=== PATIENT | female | born 1955 | race Caucasian/White ===

== ENCOUNTER 2017-07-02 11:02 | Day surgery (SDC) | payer BC ==
[~2017-07-02] VITALS: Ht 180.3 cm; Wt 101.6 kg
[~2017-07-02 11:02] MED LIST: CHOLESTEROL; COZAAR100 MG PO; LIPITOR20 M1 PO; LISINOPRIL; LOPRESSOR50 M1 PO; MULTIVITAMI9 PO
[2017-07-02 13:23] VITALS: BP 157/99
== END 2017-07-02 13:30 | disposition home or self-care (01) | DRG 395 ==
LOC: ENDO 11:02 → ORM 13:45
PROVIDERS: ATTEND Internal Medicine Gastroenterology
PROC: 0DBN8ZX Excision of Sigmoid Colon, Via Natural or Artificial Opening Endoscopic, Diagnostic (ICD-10-PCS; principal; 2017-07-02)
PROC: 0DJD8ZZ Inspection of Lower Intestinal Tract, Via Natural or Artificial Opening Endoscopic (ICD-10-PCS; 2017-07-02)
DX: K64.8 Other hemorrhoids (principal); Z85.038 Personal history of other malignant neoplasm of large intestine; D12.5 Benign neoplasm of sigmoid colon; Z80.0 Family history of malignant neoplasm of digestive organs; Z93.3 Colostomy status; Z98.84 Bariatric surgery status

== ENCOUNTER 2017-07-27 15:20 | Inpatient (IN) | payer BC ==
[~2017-07-27] VITALS: Ht 180.3 cm; Wt 99.8 kg
[~2017-07-27 15:20] MED LIST changes: +CENTRU3 PO; +METOPROLOL SUCC50 MG PO; +PROTONIX40 M2 PO
--- NOTE | 2017-08-04 17:55 | NUR ---
PT REMAINS IN OR .
[2017-08-04 18:35] VITALS: BP 125/75
--- NOTE | 2017-08-04 18:35 | NUR ---
pt arrived from or in bed, ngt inplace, weston draining yellow urine. scd's in place. dressing on abd is cdi. emely draining. iv site is free from redness or edema. pt inquiring about ice chips due to being dry mouthed. informed we can give the swabs. continue to osberve and monitor.
--- NOTE | 2017-08-04 19:30 | NUR ---
according to the contract consultant pump it is readinmg/10mg/10mg lockout. needing to verify with . call made by rn oncoming shift. spoke with piero hernandez from or and was informed that leonor hernandez from or recieved orders from .
--- NOTE | 2017-08-04 19:30 | NUR ---
PATIENT RESTING IN BED AT THIS TIME-DROWSY BUT AROUSABLE. PATIENT IS ORIENTEDX3. PATIENT WITH NGTUBE TO LEFT NARE TO LIWS DRAINING SCANT AMT OF CLEAR DRAINAGE. PATIENT WITH LAZARO CATH PATENT AND DRAINING CLEAR YELLOW URINE. MUSA DRAIN TO LEFT ABD INTACT AND DRAINING MODERATE AMT OF SEROSANGUINOUS FLUID. ABD DRESSING CLEAN DRY AND INTACT. PATIENT WITH IV SITE TO LEFT HAND WITH IVF PATENT AND INFUSING AT 150CC/HR. SITE APPEARS HEALTHY AT THIS TIME. MORPHINE SOLAR SYSTEM DESIGNER IN PLACE AND WILL VERIFY ORDER-DR. SOFIA HAS ALREADY BEEN CALLED AND AWAITING CALL BACK. O2 VIA NASAL CANNULA IN PLACE AT 2LPM-ENCOURAGED USE OF IS Q1H WHILE AWAKE AND CDB EXERCISE. SAMINA SCD IN PLACE AND WORKING. ABD IS SOFT WITH HYPOACTIVE BS. NO PEDAL EDEMA NOTED AND PULSE PALPABLE. PATIENT ORIENTED TO SURROUNDINGS AND NURSE CALL LIGHT SYSTEM. CALL LIGHT IN REACH. WILL CONT TO MONITOR.
--- NOTE | 2017-08-04 19:50 | NUR ---
RECIEVED CALL BACK FROM DR. SOFIA AND FORGING PRESS LEVER TENDER ORDERS CLARIFIED. MORPHINE FORGING PRESS LEVER TENDER ORDERS ARE NO BASAL/FORGING PRESS LEVER TENDER DOSE 1MG/10MIN LOCKOUT/6MG 1HOUR LIMIT. FORGING PRESS LEVER TENDER ADJUSTED PER ORDER. MUSA EMPTIED FOR 75CC OF SERSANGUINOUS FLUID. PATIENT TAKING ICE CHIPS IN SMALL AMTS. NO COMPLAINTS AT THIS TIME. CALL LIGHT IN REACH. WILL CONT TO MONITOR.
[2017-08-05] VITALS (9 sets, daily range): BP systolic 82–140; BP diastolic 50–91
--- NOTE | 2017-08-05 00:01 | NUR ---
PATIENT IS MORE ALERT AT THIS TIME-ASKING ABOUT USING THE TV REMOTE. PATIENT STATES THAT SHE IS COMFORTABLE AT THIS TIME AND HASN'T NEEDED THE CASTING MACHINE ADJUSTER SINCE AROUND 1999. REINFORCED HOW THE CASTING MACHINE ADJUSTER USED AND THE USE OF THE BUTTON HERSELF. REINFORCED USE OF THE IS AND PATIENT IS ABLE TO DEMONSTRATE THE USE OF IS. CALL LIGHT IN REACH. WILL CONT TO MONITOR.
--- NOTE | 2017-08-05 00:57 | NUR ---
MUSA DRAIN EMPTIED FOR 110CC OF BLOODY DRAINAGE. LARGE CLOT EXPRESSED FROM THE MUSA BULB. RECHARGED THE MUSA DRAIN. ZOSYN INFUSING ORDERED. SAFETY PRECAUTIONS REINFORCED. CALL LIGHT IN REACH. WILL CONT TO MONITOR.
--- NOTE | 2017-08-05 02:47 | NUR ---
PATIENT PUT NURSE CALL LIGHT ON AND STATES THAT SHE CAN'T BREATH AND SHE NEEDS A TREATMENT. PATIENT WITH O2 VIA NASAL CANNULA IN PLACE AT 2LPM. P-76 AND O2 SAT 94-95%, PATIENT IS WHEEZING . REST THERAPY CALLED AND WILL BE GIVING HER A NEB TREATMENT. RELAXATION TECHNIQUE REINFORCED WITH PATIENT AND DID HELP WHILE WAITING FOR RESP THERAPY. TREATMENT IN PROGRESS AT THIS TIME. WILL CONT TO MONITOR.
--- NOTE | 2017-08-05 03:45 | NUR ---
PATIENT C/O FEELING UNCOMFORTABLE-WANTS TO SIT UP AND TAKE O2 OFF. PATIENT ASSISTED TO THE SIDE OF THE BED-INSTRUCTED PATIENT REGUARDING SPLINTING THE INCISION WITH PILLOW WHEN CHANGING POSITION. PATIENT USING THE MORPHINE PHYSICAL FITNESS TEACHER BEFORE ATTEMPTING TO SIT UP AND THEN C/O FEELING DIZZY. INSTRUCTED PATIENT ON DEEP BREATHING EXERCISES. ASSISTED PATIENT BACK INTO THE BED. BP IS LOW AND O2 IS 89-90% OFF O2. O2 REAPPLIED AT 2LPM. PATIENT REPOSITIONED IN BED AND STATES THAT SHE IS FEELING BETTER AT THIS TIME. MUSA EMPTIED FOR ADDITIONAL 15CC AT THIS TIME. SAFETY PRECAUTIONS REINFORCED. LAZARO EMPTIED FOR 575 OF YELLOW URINE. CALL LIGHT AND PHYSICAL FITNESS TEACHER CONTROL WITHIN REACH. TAKING IN SMALL AMT OF ICE CHIPS. ABD DRESSING REMAINS CDI. ABD IS SOFT. O2 UP TO 93% WITH O2 IN PLACE. WILL CONT TO MONITOR.
--- NOTE | 2017-08-05 04:46 | NUR ---
PATIENT RESTING IN BED AT THIS TIME WITH HOB ELEVATED AND APPEARS SLEEPING WITH EYES CLOSED. VS TAKEN [id number]/62 AT THIS TIME. NG TUBE CONT WO LIWS WITH SMALL AMT OF CLEAR FLUID DRAINING. CALL LIGHT AND NUCLEAR EQUIPMENT SALES ENGINEER CONTROLLER IN REACH. WILL CONT TO MONITOR.
[2017-08-05 06:52] LABS: HEMATOCRIT 31.7 % (37.0-47.0); HEMOGLOBIN 10.1 g/dl (12.0-16.0); IMMATURE GRANULOCYTES 0.6 % (0.0-1.0); MEAN CELL VOLUME 98.4 fL CALC (80.0-100.0); MEAN CORPUSCULAR HGB 31.4 pG CALC (26.0-32.0); MEAN CORPUSCULAR HGB CONC 31.9 g/L CALC (32.0-36.0); NEUT# 16.28 thou/uL (2.00-7.15); RED BLOOD COUNT 3.22 mill/uL (4.20-5.60); RED CELL DISTRI WIDTH 12.7 % (11.5-15.5)
--- NOTE | 2017-08-05 07:00 | NUR ---
BEDSIDE REPORT RECIEVED FROM GRADY NEVAREZ. PT AWAKE ON ENTRY. RESP EVEN AND UNLABORED ON 02 2L NC. NO SIGNS OF DISTRESS. NO COMPLAINS OF PAIN FROM PT. CALL LIGHT WITHIN REACH.
[2017-08-05 07:02] LABS: ALBUMIN 2.7 g/dL (3.2-5.0); ALKALINE PHOSPHATASE 61 u/l (38-126); ANION GAP 15 (6-22 (CALC)); BILIRUBIN, TOTAL 0.9 mg/dL (0.0-1.4); BUN 13 mg/dL (8-23); BUN/CREATININE RATIO 17 (12-20 (CALC)); CALCIUM 8.2 mg/dL (8.4-10.2); CARBON DIOXIDE 16 mmol/l (22-30); CHLORIDE 115 mmol/l (95-108); CREATININE 0.8 mg/dL (0.5-1.0); GFR > 60 ML/MIN (>=60 (CALC)); GFR FOR AFR.AMER. > 60 ML/MIN (>=60 (CALC)); GLUCOSE 187 mg/dL (82-115); POTASSIUM 4.4 mmol/l (3.5-5.1); SGOT/AST 24 u/l (9-36); SGPT/ALT 25 u/l (11-66); SODIUM 141 mmol/l (137-146)
--- NOTE | 2017-08-05 12:00 | NUR ---
PT RESTING SUPINE IN BED. NO COMPLAINTS AT THIS TIME. NO SIGNS OF DISTRESS. PT IV PATENT AND SIGHT APPEARS HEALTHY. NG IN LEFT NARE AT LOW INTERMITTENT SUCTION, CLEAR. ABD DRESSING CDI. MUSA IN PLACE. SAFETY PRECAUTIONS IN PLACE. CALL LIGHT WITHIN REACH. WILL CONTINUE TO MAKE HOURLY ROUNDS.
--- NOTE | 2017-08-05 17:00 | NUR ---
BP CHECKED BY CYLINDER BLOCK HOLE RELINER. REPORTED TO ME 82/50 VIA MANUAL. PT IS ASYMPTOMATIC, NO SIGNS OF DISTRESS. REPORTED TO ILIANA CHAO. INTSRUCTED TO RECHECK IN 1 HOUR, THEN WILL REPORT TO DR MARLEY IF BP IS UNCHANGED OR DROPS. CALL LIGHT WITHIN REACH.
--- NOTE | 2017-08-05 18:00 | NUR ---
MANUAL BP RECHECKED. BP 90/60. PT ALERT AND ORIENTED. NO SIGNS OF DISTRESS. WILL CONTINUE TO MONITER. CALL LIGHT WITHIN REACH.
--- NOTE | 2017-08-05 19:00 | NUR ---
RECEIVED REPORT FROM CATARINO VALDEZ LPN. FOUND PT IN SEMIFOWLER'S POSITION, A/O X3, DENIES PAIN AT THIS TIME, RESP ARE EVEN AND UNLABORED, NO DISTRESS NOTED, MUSA DRAIN TO RT ABDOMEN, WAS EMPTIED A FEW MINS EARLY, SCANT RED SEROSANGUINEOUS WITH A CLOT NOTED ON TUBING. NJ TO LT NARE CONNECTED TO LIS, 2ML IN CANISTER NOW, PREVIOUSLY ABIGAIL AT 250ML, WHITE COLOR, LIKE SALIVA, PT CONTINUES NPO, PROVIDED A FEW ICE CHIPS TO MOIST MOUTH, NON-ACCESSED CHEST PORT FELT TO RT CHEST, D5 1/2NS AT 150ML/HR INFUSING TO 20G LT HAND, IV SITE IS FREE OF EDEMA OR REDNESS, DRESSINGS ON MID ABD AND RT ABD (COVERING MUSA) ARE CDI, NO DRAINGAGED NOTED AT THIS TIME. LAZARO DRAINING TO GRAVITY CLEAR YELLOW URINE WITH SOME SEDIMENTS NOTED, 50ML IN BAG AT THIS TIME, LEG STRAP IN PLACE SECURING IT. MORPHINE WORKDAY MANAGER PUMP FOR PAIN, 1MG DOSE, 10MINS LOCKOUT, VOLUME RESERVOIR 84.1 AT THIS TIME. PT EDUCATED ABOUT WORKDAY MANAGER PUMP, VOICES UNDERSTANDING, SDC'S IN PLACE, ENCOURAGED TO CALL IF NEEDED, WILL FOLLOW UP WITH MED SCHEDULE AND ASSESSMENT, CALL NICOLE AT REACH.
--- NOTE | 2017-08-05 21:16 | NUR ---
MEDICATED PER ORDERS, PT WATCHING TV, DENIES DISCOMFORT OR PAIN, ANSWERED QUESTIONS ABOUT PLAN OF CARE, DENIES NEEDS, NO DISTRESS NOTED, WILL CONTINUE TO MONITOR, DEMOSTRATED USING ISP, REACHES 1000 ML, WITH EFFORT, STATES ABD IS TENDER AT DEEP BREATHING, EDUCATED ABOUT REATIONALE FOR ISP, VOICES UNDERSTANDING, ENCOURAGED TO CALL IF NEEDED. CALL NICOLE AT REACH.
--- NOTE | 2017-08-05 22:00 | NUR ---
PT RESTING "COMFORTABLE" IN BED, DENIES PAIN OR NEEDS, NO DISTRES NOTED, WILL CONTINUE TO MONITOR.
--- NOTE | 2017-08-06 | NUR ---
RESTING IN SEMI THACKER'S POSITION, STATES ABD IS TENDER WITH DEEP INSPIRATION, HAS NOT USED LUMBER CHAIN OFFBEARER PUMP SINCE SHIFT CHANGED, REMIND HER OF USAGE IF NEEDED, USED ISP, SHOWED EFFORT UP TO 1000ML, UNABLE TO HOLD BREATH, PROVIDED A PILLOW TO SUPPORT INCISION WHEN DEEP BREATHING, MUSA HAS MINIMUM SEROSANGUINEOUS DRAINAGE, NJT CONTINUE DRAINING SMALL AMOUNTS OF CLEAR STOMACH CONTENTS, IV SITE INTACT, INFUSING SOZYN WITHOUT DIFFICULTY, PT DENIES NEEDS, PROVIDED A FEW ICE CHIPS TO MOIST MOUTH, DENIES N/V, VSS, AFEBRILE, CALL NICOLE AT REACH.
[2017-08-06 00:05] VITALS: BP 112/76
[2017-08-06 04:00] VITALS: BP 120/84
--- NOTE | 2017-08-06 04:50 | NUR ---
PT RESTING IN BED WITH EYES CLOSED, RESP ARE EVEN AND UNLABORED, DENIES PAIN, NO GUARDING NOTED, VSS, AFEBRILE, C/O DRY MOUTH, REQUESTING SALT WATER TO GARGLE, EMPTIED 2ML FROM MUSA, AND DRAINAGED FROM NJT 100 ML SINCE BEGINNING OF INSTRUMENT INSPECTOR, LAZARO CONTINUE BY GRAVITY, DRESSINGS ON ABD ARE CDI, STATES ABD IS TENDER WHEN DEEP INHALATION, DEMOSTRATED USE OF ISP, FRAME CATCHER PUMP NOT USED SINCE 99, DENIES PAIN, ENCOURAGED TO CALL IF NEEDED, CALL NICOLE AT REACH. REPOSITIONED FOR COMFORT.
[2017-08-06 05:56] LABS: HEMATOCRIT 26.9 % (37.0-47.0); HEMOGLOBIN 8.6 g/dl (12.0-16.0); MEAN CELL VOLUME 101.1 fL CALC (80.0-100.0); MEAN CORPUSCULAR HGB 32.3 pG CALC (26.0-32.0); RED BLOOD COUNT 2.66 mill/uL (4.20-5.60); RED CELL DISTRI WIDTH 12.9 % (11.5-15.5)
[2017-08-06 06:11] LABS: ANION GAP 12 (6-22 (CALC)); BUN 12 mg/dL (8-23); BUN/CREATININE RATIO 16 (12-20 (CALC)); CALCIUM 8.6 mg/dL (8.4-10.2); CARBON DIOXIDE 20 mmol/l (22-30); CHLORIDE 111 mmol/l (95-108); CREATININE 0.8 mg/dL (0.5-1.0); GFR > 60 ML/MIN (>=60 (CALC)); GFR FOR AFR.AMER. > 60 ML/MIN (>=60 (CALC)); GLUCOSE 130 mg/dL (82-115); SODIUM 139 mmol/l (137-146)
--- NOTE | 2017-08-06 06:27 | NUR ---
TOTAL FAMILY SUPPORT COORDINATOR OUPUT 1000ML CLEAR, YELLOW URINE WITH SOME SEDIMENTS NOTED, MUSA SCANT SEROSANGUINEOUS DRAINAGED, DRAINAGE FROM NG TUBE IS CLEAR WITH TINGE DARK RED COLOR, DENIES PAIN, N/V, DRSG IN ABD ARE CDI, CALL NICOLE AT REACH.
--- NOTE | 2017-08-06 07:00 | NUR ---
REPORT RECIEVED FROM GRADY MAXWELL. PT AWAKE ON ENTRY. NO SIGNS OF DISTRESS. NO COMPLAINTS OF PAIN AT THIS TIME. SAFETY PRECAUTIONS IN PLACE. CALL LIGHT WITHIN REACH. WILL CONTINUE TO MAKE HOURLY ROUNDS.
[2017-08-06 07:43] VITALS: BP 121/77
[2017-08-06 11:31] VITALS: BP 140/73
--- NOTE | 2017-08-06 15:15 | NUR ---
PM: PATIENT SEEN FOR GAIT TRAINING. THE GASTRIC PUMP IS CLAMPED OFF. PATIENT AMBULATED 3-4 STEPS USING A WALKER AND MOD ASSIST OF ONE. SHE IS VERY APPREHENSIVE AND HOLDING BACK ON HER BREATHING COUGHING BECAUSE OF THE PAIN. SHE IS ENCOURAGED TO DEEP BREATHE. PATIENT APPEARED TO TOLERATE TREATMENT WELL AND WAS LEFT COMFORTABLE IN THE CHAIR WITH THE CALL LIGHT AND MORPHINE PUMP ACCESSABLE.
--- NOTE | 2017-08-06 15:20 | NUR ---
PHYSICAL THERAPY IS IN THE ROOM WITH PT AT THIS TIME. SAFETY PRECAUTIONS IN PLACE. WILL CONTINUE TO MONITOR PT HOURLY.
--- NOTE | 2017-08-06 18:40 | NUR ---
PT RESTING IN SUPINE POSITION IN BED. SCD'S ON. PT WORKING ON INCENTIVE SPIROMETER. NG CLAMPED. IV SIGHT IS PATENT AND APPEARS HEALTHY. NO SIGNS OF DISTRESS. SAFETY PRECAUTIONS REINFORCED. CALL LIGHT WITHIN REACH.
--- NOTE | 2017-08-06 19:50 | NUR ---
PT IN BED A/O X3, RESPIRATIONS EVEN AND UNLABORED ON O2@2L VIA NC, ADMITS TO GETTING OOB TO CHAIR TODAY, NG TUBE IS CLAMPED AND IS NPO, ICE CHIPS AT BED SIDE. BS ARE HYPOACTIVE, DRESSING TO ABDOMEN REMOVED, SCANT AMOUNT OF BLOODY DRAINAGE FROM LEFT ABDOMINAL INCISION, MIDLINE INCISION CLEAN NO DRAINING, MUSA DRAING INSERTION ALSO NO DRAINAGE, STRIPPED LINE, COVERED ALL WITH DRY DRESSING, TOLERATED WELL. D51/2NS INFUSING TO LH AT 100CC/HR. SCD'S TO BILAT LOWER EXTREMITIES, LAZARO DRAINING CLEAR YELLOW URINE. ABLE TO INSPIRE 1500 WHEN USING INCENTIVE SPIROMETER. TEACHING DONE TO SPLINT ABDOMEN WHEN USING ABDOMINAL MUSCLES. WILL CONTINUE TO MONITOR.
[2017-08-06 20:05] VITALS: BP 136/81
--- NOTE | 2017-08-06 21:00 | NUR ---
ASSISTED WITH POSITIONING TO LEFT SIDE.
[2017-08-06 23:53] VITALS: BP 133/79
--- NOTE | 2017-08-06 23:55 | NUR ---
ZOSYN SPIKED AND INFUSING TO LH WITH NO COMPLICATIONS, PT IS A/O X3, DENIES PAIN USING MORPHINE BATTERY TECHNICIAN WITH BATTERY TECHNICIAN DOSE 1MG, LOCK OUT 10MINS, 6MG LIMIT PER HOUR. CALL LIGHT IN REACH. HAS REPOSITIONED SELF.
--- NOTE | 2017-08-07 02:30 | NUR ---
RESTING ON RIGHT SIDE WITH EYES CLOSED, RESPIRATIONS EVEN AND UNLABORED. CALL LIGHT IN REACH.
[2017-08-07 04:32] VITALS: BP 142/89
--- NOTE | 2017-08-07 05:00 | NUR ---
PT REPOSITIONING SELF IN BED, DENIES PASSING FLATUS DURING THE NIGHT, IS BURPING, BS HYPOACTIVE. DENIES PAIN.
[2017-08-07 05:21] LABS: HEMATOCRIT 24.1 % (37.0-47.0); HEMOGLOBIN 7.8 g/dl (12.0-16.0); MEAN CORPUSCULAR HGB 31.7 pG CALC (26.0-32.0); MEAN CORPUSCULAR HGB CONC 32.4 g/L CALC (32.0-36.0); RED BLOOD COUNT 2.46 mill/uL (4.20-5.60); RED CELL DISTRI WIDTH 12.7 % (11.5-15.5)
[2017-08-07 05:32] LABS: ANION GAP 11 (6-22 (CALC)); BUN 7 mg/dL (8-23); BUN/CREATININE RATIO 10 (12-20 (CALC)); CALCIUM 8.7 mg/dL (8.4-10.2); CARBON DIOXIDE 22 mmol/l (22-30); CHLORIDE 111 mmol/l (95-108); CREATININE 0.7 mg/dL (0.5-1.0); GFR > 60 ML/MIN (>=60 (CALC)); GFR FOR AFR.AMER. > 60 ML/MIN (>=60 (CALC)); GLUCOSE 106 mg/dL (82-115); POTASSIUM 3.3 mmol/l (3.5-5.1); SODIUM 140 mmol/l (137-146)
--- NOTE | 2017-08-07 07:00 | NUR ---
RECEIVED BEDSIDE REPORT FROM IBAN ESQUIVEL. RESTING IN BED WITH EYES CLOSED, AWAKENS EASILY. RESPS EVEN AND UNLABORED ON O2 VIA NC. NG TUBE IN LEFT NARE, CLAMPED. LAZARO PATENT DRAINING CLEAR YELLOW URINE. #20 LH INFUSING WITHOUT DIFFICULTY, SITE APPEARS HEALTHY. SCD'S TO BILAT LOWER EXTREMITIES. IS AT BEDSIDE, ENCOURAGED PT TO USE 10X Q HOUR WHILE AWAKE. DENIES PAIN OR DISCOMFORT. REPORTS PAIN ONLY WITH MOVEMENT. PLAN OF CARE DISCUSSED. SAFETY PRECAUTIONS REINFORCED. BED IN LOWEST POSITION WITH WHEELS LOCKED. CALL LIGHT WITHIN REACH. FISHER LOBSTER BUTTON WITHIN REACH.
--- NOTE | 2017-08-07 07:25 | NUR ---
DR MERZA IN WITH PT, NEW ORDERS RECEIVED.
[2017-08-07 07:29] VITALS: BP 132/83
--- NOTE | 2017-08-07 08:40 | NUR ---
LAZARO CATH REMOVED. PT TOLERATED WELL. ENCOURAGED PT TO CALL FOR ASSIST TO BATHROOM AND NEED TO MEASURE AND RECORD ALL VOIDS. CALL LIGHT WITHIN REACH.
--- NOTE | 2017-08-07 10:20 | NUR ---
SITTING IN BEDSIDE CHAIR. RESPS EVEN AND UNLABORED ON ROOM AIR. NG TUBE CLAMPED IN PLACE IN LEFT NARE. #20 LH INFUSING WITHOUT DIFFICULTY, SITE APPEARS HEALTHY. DR SOFIA IN WITH PT, NEW ORDERS RECEIVED. CALL LIGHT WITHIN REACH. WILL CONTINUE TO MONITOR.
--- NOTE | 2017-08-07 10:50 | NUR ---
SUTURES REMOVED FROM MUSA SITE, 10 CC OF DARK RED DRAINAGE REMOVED. MUSA DRAIN REMOVED, TUBING INTACT, DRESSING APPLIED. PT TOLERATED PROCEDURE WITHOUT COMPLAINTS VOICED. CALL LIGHT WITHIN REACH.
--- NOTE | 2017-08-07 11:05 | NUR ---
AMBULATING IN HALLWAY WITH STEADY GAIT ACCOMPANIED BY NURSING STUDENTS. PT TOLERATED WITHOUT C/O PAIN OR DISCOMFORT.
--- NOTE | 2017-08-07 15:57 | NUR ---
DRESSING TO ABD INCISION REMOVED. SMALL AMT SEROSANGUINEOUS DRAINAGE NOTED TO DRESSING TO BOTH SITES. AREA CLEANSED WITH NS, PATTED DRY, DRY GAUZE PACKED IN OLD COLOSTOMY SITE, COVERED WITH ABD PAD, SECURED WITH PAPER TAPE. TOLERATED WELL. #2O LH INFUSING WITHOUT DIFFICULTY, SITE APPEARS HEALTHY. SCD'S TO BILAT LOWER EXTREMITIES. CALL LIGHT WITHIN REACH. WILL CONTINUE TO MONITOR.
[2017-08-07 16:17] VITALS: BP 114/61
--- NOTE | 2017-08-07 18:09 | NUR ---
TOLERATING FULL LIQUID DIET WITHOUT C/O NAUSEA OR ABD PAIN. VOICES NO NEEDS AT THIS TIME. CALL LIGHT WITHIN REACH. WILL CONTINUE TO MONITOR.
--- NOTE | 2017-08-07 19:30 | NUR ---
PATIENT UP TO THE BR TO VOID WITH SB ASSIST ONLY AND THE BACK TO BED. PATIENT STEADY ON HER FEET AND TOLERATED WELL-VOIDING CLEAR YELLOW URINE. PATIENT ALERT AND ORIENTEDX3 AND STATES THAT SHE HAD A "GREAT DAY TODAY". PATIENT IS TAKING FULL LIQUID DIET AND STATES TOLERATED WELL. ABD IS SOFT WITH HYPOACTIVE BS. ABD DRESSINGS ARE CDI AT THIS TIME. IVF D5LR PATENT AND INFUSING LEFT HAND AT 75CC/HR. SITE IS HEALTHY AT THIS TIME. SCD IN PLACE AND PATIENT DEMONSTRATES USING IS INSTRUCTED Q1H WHILE AWAKE. ALSO DOING CDB EXERCISES-LUNGS CLEAR. TORADOL IS WORKING WELL FOR PAIN MANAGEMENT. SAFETY PRECAUTIONS REINFORCED. CALL LIGHT IN REACH. WILL CONT TOO MONITOR.
[2017-08-07 19:34] VITALS: BP 136/68
[2017-08-07 23:24] VITALS: BP 151/75
--- NOTE | 2017-08-07 23:34 | NUR ---
PATIENT UP TO THE BR ON HER OWN AND THEN BACK TO BED-TOLERATED WELL WITH NO ASSIST. PATIENT CONT TO VOID CLEAR YELLOW URINE IN BR. STATES NO FLATUS YET. IVF D5LR CONT TO INFUSEC/HR VIA LEFT HAND SITE-SITE REMAINS HEALTHY AT THIS TIME. PATIENT WAS ABLE TO TOLERATE 1/2 CUP OF HOT TEA WELL WITH NO COMPLAINTS. PATIENT MEDICATED FOR SLEEP WITH SONATA 5MG PO ORDERED. ABD DRESSING REMAINS CDI. ABD IS SOFT. SAFETY PRECAUTIONS REINFORCED. CALL LIGHT IN REACH. WILL CONT TO MONITOR.
[2017-08-08 03:16] VITALS: BP 138/77
--- NOTE | 2017-08-08 03:40 | NUR ---
PATIENT CONT UP AND DOWN TO THE BR WITHOUT ANY DIFFICU;LTY. VOIDING IN GOOD AMTS. ABD DRESSING CHANGED=SCANT AMT OF SEROUS DRAINAGE NOTED FROM THE POST-OP INCISION AND SMALL AMT OF SEROUS NOTED FROM OLD OSTOMY SITE. ANNE INTACT AND WELL APPROXIMATED. DSD REAPPLIED ORDERED. DRESSING REMOVED FROM MUSA SITE WITH SCANT DRAINAGE AND LARGE BANDAID APPLIED. PATIENT HAVING ALOT OF BELCHING AND AMBULATED IN THE HALLS TOLERATED WELL. SITTING UP IN THE RECLINER AT THIS TIME. PAIN MANAGEMENT DOING WELL WITH TORADOL. SAFETY PRECAUTIONS REINFORCED CALL LIGHT IN REACH. WILL CONT TO MONITOR.
[2017-08-08 05:08] LABS: HEMATOCRIT 21.5 % (37.0-47.0); HEMOGLOBIN 7.1 g/dl (12.0-16.0); MEAN CELL VOLUME 96.4 fL CALC (80.0-100.0); MEAN CORPUSCULAR HGB 31.8 pG CALC (26.0-32.0); RED BLOOD COUNT 2.23 mill/uL (4.20-5.60); RED CELL DISTRI WIDTH 12.8 % (11.5-15.5)
[2017-08-08 05:33] LABS: ANION GAP 10 (6-22 (CALC)); BUN 7 mg/dL (8-23); BUN/CREATININE RATIO 10 (12-20 (CALC)); CALCIUM 8.8 mg/dL (8.4-10.2); CARBON DIOXIDE 25 mmol/l (22-30); CHLORIDE 110 mmol/l (95-108); CREATININE 0.7 mg/dL (0.5-1.0); GFR > 60 ML/MIN (>=60 (CALC)); GFR FOR AFR.AMER. > 60 ML/MIN (>=60 (CALC)); GLUCOSE 96 mg/dL (82-115); MAGNESIUM 1.8 mg/dL (1.6-2.3); POTASSIUM 3.3 mmol/l (3.5-5.1); SODIUM 142 mmol/l (137-146)
--- NOTE | 2017-08-08 06:00 | NUR ---
PATIENT RESTING IN BED AT THIS TIME-NO COMPLAINTS EXCEPT THAT SHE IS ANXIOUS ABOUT GOING HOME. REASSURANCE GIVEN. SAFETY PRECAUTIONS REINFORCED. CALL LIGHT IN REACH.
--- NOTE | 2017-08-08 07:00 | NUR ---
RECEIVED BEDSIDE REPORT FROM ROQUE RASMUSSEN. SITTING IN BEDSIDE CHAIR. RESPS EVEN AND UNLABORED ON ROOM AIR. #20 LH INFUSING WITHOUT DIFFICULTY, SITE APPEARS HEALTHY. VOICES NO NEEDS AT THIS TIME. PLAN OF CARE DISCUSSED. SAFETY PRECAUTIONS REINFORCED. BED IN LOWEST POSITION WITH WHEELS LOCKED. CALL LIGHT WITHIN REACH. ENCOURAGED PT TO CALL FOR ANY NEEDS.
[2017-08-08 07:27] VITALS: BP 132/89
--- NOTE | 2017-08-08 08:00 | NUR ---
DR MERAZ IN WITH PT, NEW ORDERS RECEIVED.
--- NOTE | 2017-08-08 08:30 | NUR ---
AMBULATING IN HALLWAY WITH STEADY GAIT ACCOMPANIED BY NURSING STUDENTS.
--- NOTE | 2017-08-08 08:55 | NUR ---
SITTING IN BEDSIDE CHAIR. RESPS EVEN AND UNLABORED ON ROOM AIR. MEDICATED WITH ULTRAM 50MG PO FOR C/O 8/10 ABD DISCOMFORT. CALL LIGHT WITHIN REACH. WILL CONTINUE TO MONITOR.
--- NOTE | 2017-08-08 11:25 | NUR ---
PHONE CALL FROM DR SOFIA, NO NEW ORDERS RECEIVED.
[2017-08-08 15:35] VITALS: BP 156/93
--- NOTE | 2017-08-08 15:37 | NUR ---
RESTING IN HIGH FOWLERS. RESPS EVEN AND UNLABORED ON ROOM AIR. DENIES PAIN OR DISCOMFORT. ENCOURAGED TO AMBULATE FREQUENTLY IN HALLWAY. PO FLUIDS OFFERED. CALL LIGHT WITHIN REACH.
--- NOTE | 2017-08-08 15:57 | NUR ---
AMBULATING IN HALLWAY WITH STEADY GAIT. TOLERATED WITHOUT DIFFICULTY.
--- NOTE | 2017-08-08 16:30 | NUR ---
SITTING IN BEDSIDE CHAIR. DRESSING TO ABD SURGICAL WOUND REMOVED. SCANT AMT SEROSANGUINEOUS DRAINAGE TO MIDLINE WOUND, ANNE INTACT AND WELL APPROXIMATED. OLD OSTOMY SITE WITH SMALL AMT SEROSANGUINEOUS DRAINAGE, ANNE INTACT. COVERED WITH DRY STERILE DRESSING, SECURED WITH MESH PANTIES. TOLERATED TREATMENT WELL, WITHOUT C/O PAIN. CONTINUES BELCHING DENIES PASSING FLATUS. ENCOURAGED FREQUENT AMBULATION.
[2017-08-08 19:05] VITALS: BP 157/87
--- NOTE | 2017-08-08 19:05 | NUR ---
PT SITTING UP IN BED. PT IS ALERT AND ORIENTED X3. PERRLA. RESP ARE EVEN AND UNLABORED. LUNGS ARE CLEAR.HR REGULAR. PULSES PALPABLE THROUGHOUT. SLIGHT EDEMA TO BILAT LOWER EXT. BS ACTIVE. PT DENIES A BOWEL MOVEMENT. PT STATES THAT SHE IS NOT HAVING FLATUS EITHER. PT IS BELCHING AND NAUSEATED. PT STATES THAT HER PAIN LEVEL IS A 6. PT MEDICATED FOR NAUSEA AND PAIN ON PREVIOUS SHIFT. #20 LEFT HAND. NO REDNESS OR EDEMA NOTED AT SITE. WILL CONTINUE TO MONITOR.
--- NOTE | 2017-08-08 19:18 | NUR ---
MEDICATED WITH ULTRAM 50MG PO FOR C/O 4/10 ABD PAIN AND ZOFRAN 4MG IVP FOR C/O NAUSEA. ENCOURAGED PT TO AMBULATE IN HALLWAY FREQUENTLY.
--- NOTE | 2017-08-08 21:15 | NUR ---
DRESSING CHANGE COMPLETED. ABD PAD TO MIDLINE INCISION. 2X2 PACKED TO LEFT LOWER ABDOMEN WITH [address] SECURED WITH MESH PANTIES. PT TOLERATED WELL.
[2017-08-09 00:10] VITALS: BP 120/80
--- NOTE | 2017-08-09 00:24 | NUR ---
PT RESTING IN BED WITH EYES CLOSED. AROUSES TO VERBAL STIMULI. RESP ARE EVEN AND UNLABORED. NO CHANGE IN CONDITION. WILL CONTINUE TO MONITOR.
[2017-08-09 04:00] VITALS: BP 114/70
--- NOTE | 2017-08-09 04:00 | NUR ---
PT RESTING IN BED WITH EYES CLOSED. AROUSES TO VERBAL STIMULI. RESP ARE EVEN AND UNLABORED. NO CHANGE IN PT CONDITION WILL CONTINUE TO MONITOR.
[2017-08-09 05:38] LABS: HEMATOCRIT 22.7 % (37.0-47.0); HEMOGLOBIN 7.4 g/dl (12.0-16.0); MEAN CELL VOLUME 98.7 fL CALC (80.0-100.0); MEAN CORPUSCULAR HGB 32.2 pG CALC (26.0-32.0); MEAN CORPUSCULAR HGB CONC 32.6 g/L CALC (32.0-36.0); RED BLOOD COUNT 2.3 mill/uL (4.20-5.60); RED CELL DISTRI WIDTH 12.8 % (11.5-15.5)
[2017-08-09 05:42] LABS: ANION GAP 10 (6-22 (CALC)); BUN 7 mg/dL (8-23); BUN/CREATININE RATIO 10 (12-20 (CALC)); CALCIUM 8.8 mg/dL (8.4-10.2); CARBON DIOXIDE 26 mmol/l (22-30); CHLORIDE 109 mmol/l (95-108); CREATININE 0.7 mg/dL (0.5-1.0); GFR > 60 ML/MIN (>=60 (CALC)); GFR FOR AFR.AMER. > 60 ML/MIN (>=60 (CALC)); GLUCOSE 88 mg/dL (82-115); SODIUM 140 mmol/l (137-146)
--- NOTE | 2017-08-09 07:00 | NUR ---
REPORT RECIEVED FROM GRADY ARORA. PT AWAKE ON ENTRY. NO SIGNS OF DISTRESS. NO COMPLAINTS OF PAIN. PT RESTING IN SUPINE POSITION IN BED. SAFETY PRECAUTIONS IN PLACE. CALL LIGHT WITHIN REACH.
[2017-08-09 07:35] VITALS: BP 124/82
--- NOTE | 2017-08-09 10:20 | NUR ---
PT OFF FLOOR FOR XRAY.
--- NOTE | 2017-08-09 10:40 | NUR ---
PT BACK TO ROOM FROM XRAY. NO COMPLAINS OF PAIN FROM PT AT THIS MOMENT. NO SIGNS OF DISTRESS. CALL LIGHT WITHIN REACH.
--- NOTE | 2017-08-09 11:45 | NUR ---
PT SITTING IN BEDSIDE CHAIR WITH LUNCH AND IS WATCHING TV. NO COMPLAINTS OF PAIN AT THIS TIME. IV SIGHT APPEARS HEALTHY. ABD DRESSING IS CDI. PT ALSO HAS INCENTIVE SPIROMETER AT BEDSIDE AND IS WORKING ON IT Q1. SAFETY PRECAUTIONS ARE IN PLACE. CALL LIGHT WITHIN REACH.
--- NOTE | 2017-08-09 12:12 | NUR ---
AM: PATIENT DISCHARGED FROM THERAPY. ACCORDING TO THE PATIENT AND THE NURSE THE PATIENT IS WALKING LONG DISTANCES IN THE [address] WAY WITHOUT DEVICES WITH NO DIFFICULTY. SHE IS ENCOURAGED TO CONTINUE WITH THE WALKING. SHE IS AGREEABLE WITH DISCHARGE FROM THERAPY.
[2017-08-09 16:02] VITALS: BP 117/81
--- NOTE | 2017-08-09 16:57 | NUR ---
PT HAD A VERY SCANT BM. BROWN IN COLOR, BRIGHT RED BLOOD SURROUNDING BM. ILIANA CHAO NOTIFIED. ADB DRESSING CHANGED. NO ODOR FROM THE INCISION. ANNE IN PLACE. ABD DRESSING CDI. WILL CONTINUE TO MONITOR.
[2017-08-09 19:25] VITALS: BP 143/93
--- NOTE | 2017-08-09 20:00 | NUR ---
PATIENT IS UP AND ABOUT IN THE ROOM-ALERT AND ORIENTEDX3. PATIENT CONT TO HAVE FREQUENT BELCHING. SMALL AMT OF LOOSE BROWNISH BM WITH RED FLECKS. VOIDING QS KATELYNN URINE. ENCOURAGED PO FLUIDS. IV SITE TO RIGHT FOREARM-SITE APPEARS HEALTHY AT THIS TIME. ABD DRESSING TO ABD ARE CDI WITH BANDAID TO RIGHT SIDE OF ABD CDI. ABD IS SOFT WITH HYPOACTIVE BS. ENCOURAGED USE OF IS INSTRUCTED Q1H WHILE AWAKE. SAFETY PRECAUTIONS REINFORCED. CALL LIGHT IN REACH. WILL CONT TO MONITOR.
--- NOTE | 2017-08-09 22:45 | NUR ---
PATIENT UP TO THE BR VOIDED 200CC OF KATELYNN URINE AND HAD SMALL LOOSE BROWN STOOL. BACK TO BED-STEADY ON HER FEET. ABD IS SOFT WITH ABD DRESSING CDI. HYPOACTIVE BS PRESENT. PATIENT CONT TO HAVE BELCHING AND AMBULATION IS ENCOURAGED. MEDICATED WITH ZOFRAN 4MG IVP FOR NAUSEA AND WITH SONATA 10MG FOR SLEEP. SAFETY PRECAUTIONS REINFORCED. CALL LIGHT IN REACH. WILL CONT TO MONITOR.
[2017-08-09 23:25] VITALS: BP 134/85
--- NOTE | 2017-08-10 00:21 | NUR ---
PATIENT RESTING IN BED-STILL AWAKE. IV ZOSYN HUNG ORDERED VIA RIGHT FOREARM SITE. NO COMPLAINTS AT THIS TIME. CONT TO HAVE BELCHING. CALL LIGHT IN REACH. WILL CONT TO MONITOR.
--- NOTE | 2017-08-10 02:52 | NUR ---
STILL AWAKE-STATES THAT SHE CAN'T SLEEP. NO COMPLAINTS AT THIS TIME. CALL LIGHT IN REACH. WILL CONT TO MONITOR.
--- NOTE | 2017-08-10 05:04 | NUR ---
ABD DRESSING CHANGED. ABD INCISION WITH ANNE INTACT AND WELL APPROXIMATED. COVERED WITH ABD PAD AND NET PANTY TO SECURE. OLD STOMA SITE WITH A COUPLE ANNE AND SMALL OPENING-PACKED WITH 2X2 GAUGE AND COVERED WITH DRESSING. RIGHT ABD BANDAID-NO DRAINAGE FROM OLD MUSA SITE-SCABBED OVER. COVERED WITH LARGE BANDAID FOR PROTECTION. PATIENT CONT TO VOID KATELYNN URINE AND HAD ANOTHER SMALL LOOSE BROWN STOOL. CONT WITH BELCHING. CALL LIGHT IN REACH. WILL CONT TO MONITOR.
[2017-08-10 05:24] VITALS: BP 123/84
[2017-08-10 05:56] LABS: HEMOGLOBIN 7.5 g/dl (12.0-16.0); IMMATURE GRANULOCYTES 3.7 % (0.0-1.0); MEAN CELL VOLUME 99.1 fL CALC (80.0-100.0); MEAN CORPUSCULAR HGB 32.3 pG CALC (26.0-32.0); MEAN CORPUSCULAR HGB CONC 32.6 g/L CALC (32.0-36.0); NEUT# 5.96 thou/uL (2.00-7.15); RED BLOOD COUNT 2.32 mill/uL (4.20-5.60); RED CELL DISTRI WIDTH 12.9 % (11.5-15.5)
[2017-08-10 06:22] LABS: ANION GAP 11 (6-22 (CALC)); BUN 9 mg/dL (8-23); BUN/CREATININE RATIO 12 (12-20 (CALC)); CALCIUM 8.8 mg/dL (8.4-10.2); CARBON DIOXIDE 26 mmol/l (22-30); CHLORIDE 106 mmol/l (95-108); CREATININE 0.8 mg/dL (0.5-1.0); GFR > 60 ML/MIN (>=60 (CALC)); GFR FOR AFR.AMER. > 60 ML/MIN (>=60 (CALC)); GLUCOSE 89 mg/dL (82-115); MAGNESIUM 1.8 mg/dL (1.6-2.3); POTASSIUM 3.8 mmol/l (3.5-5.1); SODIUM 139 mmol/l (137-146)
--- NOTE | 2017-08-10 07:00 | NUR ---
REPORT RECIEVED FROM GRADY NEVAREZ. PT APPEARS ASLEEP ON ENTRANCE. NO SIGNS OF DISTRESS FROM PT. RESP EVEN AND UNLABORED. SAFETY PRECAUTIONS ARE IN PLACE. CALL LIGHT WITHIN REACH. WILL CONTINUE TO MONITOR.
[2017-08-10 08:19] VITALS: BP 120/75
--- NOTE | 2017-08-10 09:45 | NUR ---
PT REQUESTING TO WAIT ON TAKING 0900 MEDS, DUE TO BEING NAUSEAOUS.
--- NOTE | 2017-08-10 11:00 | NUR ---
DUE TO NO IV ACCESS. IV ANTIBIOTICS ARE BEING DISCONTINUED BY .
[2017-08-10 16:00] VITALS: BP 129/80
--- NOTE | 2017-08-10 16:00 | NUR ---
Spoke with pt, states that she is feeling better today but tired. Pt reports that she did not get any sleep last night as the prescribed medication did not work the way it did the night before. Per med list, pt received Sonata 10 mg both last night 08/09/17 and the night before 08/08/17. Pt stated that she is not experiencing any side affects and did not have any questions or concerns regarding her medications.
--- NOTE | 2017-08-10 16:20 | NUR ---
DRESSING CHANGE DONE. INCISION PACKED. ANNE ARE IN PLACE. ABD DRESSING OVER INCISION. DRESSING CDI. BAND-AID REPLACED WHERE THE MUSA DRAIN WAS. NEW BAND-AID APPLIED.
[2017-08-10 18:00] VITALS: BP 135/83
--- NOTE | 2017-08-10 19:30 | NUR ---
PT SITTING UP IN BED. REPORTS THAT SHE WAS UP AND WALKING IN HALLWAY.PT IS ALERT AND ORIENTED. PERRLA. RESP ARE EVEN AND UNLABORED. LUNGS ARE CLEAR. HR REGULAR. NO EDEMA NOTED. PULSES PALPABLE THROUGHOUT. BS ACTIVE. PT REPORTS HAVING LOOSE BOWEL MOVEMENTS TODAY. NO IV SITE. WILL CONTINUE TO MONITOR.
[2017-08-10 23:00] VITALS: BP 129/79
--- NOTE | 2017-08-11 00:04 | NUR ---
PT RESTING IN BED WITH EYES CLOSED. PT AROUSES TO VERBAL STIMULI. RESP ARE EVEN AND UNLABORED. NO CHANGE IN PT STATUS. WILL CONTINUE TO MONITOR.
--- NOTE | 2017-08-11 04:00 | NUR ---
PT RESTING IN BED WITH EYES CLOSED. AROUSED TO VERBAL STIMULI. RESP ARE EVEN AND UNLABORED. NO CHANGE IN PT STATUS. WILL CONTINUE TO MONITOR.
[2017-08-11 05:25] VITALS: BP 127/84
--- NOTE | 2017-08-11 07:00 | NUR ---
RECEIVED BEDSIDE REPORT FROM MAITE RASMUSSEN. RESTING IN BED WITH EYES CLOSED, AWAKENS EASILY. RESPS EVEN AND UNLABORED ON ROOM AIR. VOICES NO NEEDS AT THIS TIME. PLAN OF CARE DISCUSSED. SAFETY PRECAUTIONS REINFORCED. BED IN LOWEST POSITION WITH WHEELS LOCKED. CALL LIGHT WITHIN REACH. ENCOURAGED PT TO CALL FOR ANY NEEDS.
[2017-08-11 07:37] VITALS: BP 162/85
--- NOTE | 2017-08-11 09:05 | NUR ---
DR VANEGAS IN WITH PT, NEW ORDERS RECEIVED.
[2017-08-11 09:14] VITALS: BP 162/85
--- NOTE | 2017-08-11 11:45 | NUR ---
IMPLANTED PORT TO RIGHT UPPER CHEST ACCESSED BY Brendon CHÁVEZ RN USING STERILE TECHNIQUE. SITE APPEARS HEALTHY. TOLERATED WITHOUT DIFFICULTY. PO FLUIDS OFFERED. DENIES PAIN OR DISCOMFORT. CALL LIGHT WITHIN REACH.
--- NOTE | 2017-08-11 14:20 | NUR ---
DR SOFIA IN TO SEE PT, NEW ORDERS RECEIVED.
[2017-08-11] MEDS ORDERED: TRAMADOL HYDROC50 MG PO (14:50)
--- NOTE | 2017-08-11 15:35 | NUR ---
Discharge instructions given. Patient verbalizes understanding of same. Discharged in stable condition via Wheelchair to Home with spouse. All belongings sent with pt.
== END 2017-08-11 15:33 | disposition home or self-care (01) | DRG 330 ==
LOC: MS2 08-04 12:03
PROVIDERS: Internal Medicine; Nurse Practitioner Family; ADMIT Surgery; ATTEND Surgery
PROC: 0DQE0ZZ Repair Large Intestine, Open Approach (ICD-10-PCS; principal; 2017-08-04)
PROC: 0DB80ZZ Excision of Small Intestine, Open Approach (ICD-10-PCS; 2017-08-04)
PROC: 0DNW0ZZ Release Peritoneum, Open Approach (ICD-10-PCS; 2017-08-04)
DX: Z43.3 Encounter for attention to colostomy (principal); D62 Acute posthemorrhagic anemia; I10 Essential (primary) hypertension; K56.7 Ileus, unspecified; E83.42 Hypomagnesemia; K66.0 Peritoneal adhesions (postprocedural) (postinfection); E78.5 Hyperlipidemia, unspecified; E87.6 Hypokalemia; T50.2X5A Adverse effect of carbonic-anhydrase inhibitors, benzothiadiazides and other diuretics, initial encounter; Z98.84 Bariatric surgery status; Z87.891 Personal history of nicotine dependence; Z92.21 Personal history of antineoplastic chemotherapy; Z85.038 Personal history of other malignant neoplasm of large intestine
CPT/HCPCS: J1650; J1756; J2710; S0164

== ENCOUNTER 2018-09-16 06:47 | Day surgery (SDC) | payer BC ==
[~2018-09-16] VITALS: Ht 177.8 cm; Wt 104.3 kg
[~2018-09-16 06:47] MED LIST changes: +AMITRIPTYLIN25 MG PO; +D3400 UNIT PO; +MULTIVITAMIN AD1 TA1 PO; +TRAMADOL HYDROC50 MG PO
[2018-09-16 10:00] VITALS: BP 160/70
== END 2018-09-16 10:05 | disposition home or self-care (01) | DRG 951 ==
LOC: ENDO 06:47 → ORM 10:45 → ENDO 11:45
PROVIDERS: ATTEND Internal Medicine Gastroenterology
PROC: 0DJD8ZZ Inspection of Lower Intestinal Tract, Via Natural or Artificial Opening Endoscopic (ICD-10-PCS; principal; 2018-09-16)
DX: Z12.11 Encounter for screening for malignant neoplasm of colon (principal); K56.699 Other intestinal obstruction unspecified as to partial versus complete obstruction; K64.8 Other hemorrhoids; K64.4 Residual hemorrhoidal skin tags; Z85.038 Personal history of other malignant neoplasm of large intestine; Z86.010 Personal history of colon polyps; Z92.21 Personal history of antineoplastic chemotherapy; Z80.0 Family history of malignant neoplasm of digestive organs; Z90.49 Acquired absence of other specified parts of digestive tract; Z98.84 Bariatric surgery status

== ENCOUNTER → 2018-11-24 | Outpatient (REF) | payer MEDICARE ==
[2018-11-24 12:11] LABS: HEMATOCRIT 42.9 % (37.0-47.0); IMMATURE GRANULOCYTES 1.2 % (0.0-5.0); MEAN CELL VOLUME 97.3 fL CALC (80.0-100.0); MEAN CORPUSCULAR HGB 31.7 pG CALC (26.0-32.0); MEAN CORPUSCULAR HGB CONC 32.6 g/L CALC (32.0-36.0); NEUT# 6.61 thou/uL (2.00-7.15); RED BLOOD COUNT 4.41 mill/uL (4.20-5.60); RED CELL DISTRI WIDTH 13.2 % (11.5-15.5)
[2018-11-24 12:41] LABS: ALBUMIN 4.4 g/dL (3.2-5.0); BILIRUBIN, TOTAL 0.8 mg/dL (0.0-1.4); CHOLESTEROL HDL RATIO 2.4 (<4.4 (CALC)); CREATININE 1.1 mg/dL (0.5-1.0); TOTAL PROTEIN 7.2 g/dL (6.3-8.2)
[2018-11-24 13:11] LABS: TSH, 3RD GENERATION 2.13 uIU/mL (0.47 - 4.68)
== END | disposition home or self-care (01) ==
LOC: CT 11:30
PROVIDERS: ATTEND Nurse Practitioner Family
DX: I10 Essential (primary) hypertension (principal); E78.5 Hyperlipidemia, unspecified; F41.9 Anxiety disorder, unspecified; R22.0 Localized swelling, mass and lump, head

== ENCOUNTER → 2018-12-08 | Outpatient (REF) | payer MEDICARE | END | disposition home or self-care (01) | LOC: MAMMO 10:40 | PROVIDERS: ATTEND Nurse Practitioner Family | DX: Z12.31 Encounter for screening mammogram for malignant neoplasm of breast (principal); N95.1 Menopausal and female climacteric states ==

== ENCOUNTER 2021-09-11 07:54 | Day surgery (SDC) | payer MEDICARE ==
[~2021-09-11] VITALS: Ht 177.8 cm; Wt 111.1 kg
[~2021-09-11 07:54] MED LIST changes: +ALENDRONATE SOD70 MG PO; -AMITRIPTYLIN25 MG PO; +ELAVIL25 M1 PO
[2021-09-11 11:15] VITALS: BP 132/83
== END 2021-09-11 11:10 | disposition home or self-care (01) ==
LOC: ENDO 07:54 → ORM 12:45
PROVIDERS: ATTEND Surgery
PROC: 0DJD8ZZ Inspection of Lower Intestinal Tract, Via Natural or Artificial Opening Endoscopic (ICD-10-PCS; principal; 2021-09-11)
DX: K92.1 Melena (principal); Z85.038 Personal history of other malignant neoplasm of large intestine